=== PATIENT | female | born 1965 | race Caucasian/White ===

== ENCOUNTER 2022-02-14 16:29 | Inpatient (IN) | payer BC, SELFPAY ==
[~2022-02-14] VITALS: Ht 162.6 cm; Wt 93.6 kg
[2022-02-14 20:05] VITALS: BP 156/84
[2022-02-14] MEDS ORDERED: ACETAMINOPHEN TAB 650MG DOSE (2X325MG) PO PRN (20:55)
[2022-02-14] MEDS ORDERED: ERGO500029 PO (20:55)
[2022-02-14] MEDS ORDERED: LOES1TAB12 PO (20:55)
[2022-02-14] MEDS ORDERED: NS 1,000 ML IV SCH (21:15)
[2022-02-14] MEDS ORDERED: HOME MED LIST COMPLETE! XX SCH (21:20)
[2022-02-14] MEDS: metroNIDAZOLE 500 MG in IV 1 EA IV SCH (21:39)
[2022-02-14] MEDS: KETOROLAC 30 MG/ML 1ML VIAL IV SCH (21:41)
[2022-02-15 04:10] VITALS: BP 132/67
[2022-02-15] MEDS: KETOROLAC 30 MG/ML 1ML VIAL IV SCH ×2 (05:34→13:58)
[2022-02-15] MEDS: metroNIDAZOLE 500 MG in IV 1 EA IV SCH ×3 (05:34→20:55)
[2022-02-15] MEDS: HEPARIN SOD (PORCINE) 5000UNITS/ML 1ML VIAL/SYRINGE SC SCH ×3 (05:34→20:55)
[2022-02-15 07:44] LABS: BLOOD UREA NITROGEN 14 MG/DL (7-18); CALCIUM LEVEL 8.9 MG/DL (8.5-10.1); CARBON DIOXIDE LEVEL 23 MEQ/L (21-32); CHLORIDE LEVEL 109 MEQ/L (98-107); CREATININE FOR GFR 0.83 MG/DL (0.55-1.30); GLOMERULAR FILTRATION RATE > 60.0 (>51); GLUCOSE, FASTING 95 MG/DL (70-100); POTASSIUM SERUM 4.3 MEQ/L (3.5-5.1); SODIUM LEVEL 139 MEQ/L (136-145)
[2022-02-15 08:05] VITALS: BP 140/74
[2022-02-15] MEDS: cefTRIAXone SOD 1 GM in D5W MINI-BAG PLUS 50 ML IV SCH (11:48)
[2022-02-15] MEDS: dexameTHASONE 4 MG/ML 1ML VIAL (J1100 PER 1MG) IV SCH ×3 (11:48→23:10)
[2022-02-15 16:02] VITALS: BP 134/68
[2022-02-15 19:59] VITALS: BP 130/62
[2022-02-16 03:57] VITALS: BP_SYST 128; BP_SYST 136; BP_DIAS 60; BP_DIAS 68
[2022-02-16] MEDS: HEPARIN SOD (PORCINE) 5000UNITS/ML 1ML VIAL/SYRINGE SC SCH ×3 (05:31→21:24)
[2022-02-16] MEDS: metroNIDAZOLE 500 MG in IV 1 EA IV SCH ×3 (05:32→21:25)
[2022-02-16] MEDS: dexameTHASONE 4 MG/ML 1ML VIAL (J1100 PER 1MG) IV SCH ×4 (05:32→22:52)
[2022-02-16 08:00] VITALS: BP 132/70
[2022-02-16] MEDS: cefTRIAXone SOD 1 GM in D5W MINI-BAG PLUS 50 ML IV SCH (12:06)
[2022-02-16 12:40] LABS: BASO % 0.1 % (0.0-1.0); HEMATOCRIT 33.7 % (36.0-47.0); HEMOGLOBIN 11.3 g/dl (12.0-15.5); LYMPH # 1.8 10^3/uL (1.5-5.0); LYMPH % 12.8 % (24.0-44.0); MEAN CORPUSCULAR HEMOGLOBIN 28.3 pg (27.0-33.0); MEAN CORPUSCULAR HGB CONC 33.5 g/dl (32.0-36.5); MEAN CORPUSCULAR VOLUME 84.5 fl (80.0-96.0); MONO # 0.5 10^3/uL (0.0-0.8); MONO % 3.5 % (2.0-8.0); NEUTROPHILS # 11.9 10^3/uL (1.5-8.5); NEUTROPHILS % 82.8 % (36.0-66.0); PLATELET COUNT, AUTOMATED 325 10^3/uL (150-450); RED BLOOD COUNT 3.99 10^6/uL (4.00-5.40); WHITE BLOOD COUNT 14.4 10^3/uL (4.0-10.0)
[2022-02-16 12:58] LABS: ERYTHROCYTE SEDIMENTATION RATE 58 mm/hr (0-30)
[2022-02-16 13:05] LABS: BLOOD UREA NITROGEN 13 MG/DL (7-18); C REACTIVE PROTEIN QUANTITATIV 6.01 MG/DL (0.00-0.30); CALCIUM LEVEL 8.9 MG/DL (8.5-10.1); CARBON DIOXIDE LEVEL 25 MEQ/L (21-32); CHLORIDE LEVEL 110 MEQ/L (98-107); CREATININE FOR GFR 0.79 MG/DL (0.55-1.30); GLOMERULAR FILTRATION RATE > 60.0 (>51); GLUCOSE, FASTING 126 MG/DL (70-100); POTASSIUM SERUM 3.8 MEQ/L (3.5-5.1); SODIUM LEVEL 138 MEQ/L (136-145)
[2022-02-16 16:00] VITALS: BP 121/58
[2022-02-16 20:00] VITALS: BP 138/73
[2022-02-17] VITALS: BP 121/66
[2022-02-17 04:00] VITALS: BP 143/76
[2022-02-17] MEDS: HEPARIN SOD (PORCINE) 5000UNITS/ML 1ML VIAL/SYRINGE SC SCH (05:45)
[2022-02-17] MEDS: metroNIDAZOLE 500 MG in IV 1 EA IV SCH (05:49)
[2022-02-17] MEDS: dexameTHASONE 4 MG/ML 1ML VIAL (J1100 PER 1MG) IV SCH ×2 (05:49→11:15)
[2022-02-17 06:42] LABS: BASO % 0.1 % (0.0-1.0); HEMATOCRIT 31.8 % (36.0-47.0); HEMOGLOBIN 10.7 g/dl (12.0-15.5); LYMPH # 1.8 10^3/uL (1.5-5.0); LYMPH % 11.8 % (24.0-44.0); MEAN CORPUSCULAR HEMOGLOBIN 28.3 pg (27.0-33.0); MEAN CORPUSCULAR HGB CONC 33.6 g/dl (32.0-36.5); MEAN CORPUSCULAR VOLUME 84.1 fl (80.0-96.0); MONO # 0.5 10^3/uL (0.0-0.8); MONO % 3.2 % (2.0-8.0); NEUTROPHILS # 12.8 10^3/uL (1.5-8.5); NEUTROPHILS % 83.9 % (36.0-66.0); PLATELET COUNT, AUTOMATED 342 10^3/uL (150-450); RED BLOOD COUNT 3.78 10^6/uL (4.00-5.40); WHITE BLOOD COUNT 15.3 10^3/uL (4.0-10.0)
[2022-02-17] MEDS ORDERED: BACITAB PO (07:23)
[2022-02-17] MEDS ORDERED: METR-265 PO ×2 (07:23→11:13)
[2022-02-17] MEDS ORDERED: CEFU50TA PO ×2 (07:23→11:13)
[2022-02-17 07:43] LABS: BLOOD UREA NITROGEN 16 MG/DL (7-18); CALCIUM LEVEL 8.8 MG/DL (8.5-10.1); CARBON DIOXIDE LEVEL 22 MEQ/L (21-32); CHLORIDE LEVEL 111 MEQ/L (98-107); CREATININE FOR GFR 0.78 MG/DL (0.55-1.30); GLOMERULAR FILTRATION RATE > 60.0 (>51); GLUCOSE, FASTING 123 MG/DL (70-100); POTASSIUM SERUM 4.2 MEQ/L (3.5-5.1); SODIUM LEVEL 140 MEQ/L (136-145)
[2022-02-17 07:55] LABS: ERYTHROCYTE SEDIMENTATION RATE 42 mm/hr (0-30)
[2022-02-17 08:00] VITALS: BP 146/78
[2022-02-17] MEDS ORDERED: VANCOMYCIN HCL 1,000 MG, VIAL MATE ADAPTER 1 EACH in NS 250 ML IV SCH (09:00)
[2022-02-17] MEDS ORDERED: VANCOMYCIN HCL 1,000 MG, VIAL MATE ADAPTER 1 EACH in NS 250 ML IV ONE (10:00)
[2022-02-17] MEDS: cefTRIAXone SOD 1 GM in D5W MINI-BAG PLUS 50 ML IV SCH (11:15)
== END 2022-02-17 13:02 | disposition home or self-care (01) | DRG 383 ==
LOC: M PCU 20:06
PROVIDERS: ADMIT General Practice; ATTEND General Practice
DX: L03.211 Cellulitis of face (principal); D72.829 Elevated white blood cell count, unspecified; K02.7 Dental root caries; Z88.0 Allergy status to penicillin; Z88.8 Allergy status to other drugs, medicaments and biological substances